=== PATIENT | female | born 1995 | race Caucasian/White ===

== ENCOUNTER → 2016-09-27 | Outpatient (REF) | payer BC ==
[2016-09-27 16:02] LABS: MEAN CORPUSCULAR HEMOGLOBIN 30.5 PG (26.0-34.0); MEAN CORPUSCULAR HGB CONC 34.2 g/dL (31.0-37.0); MEAN PLATELET VOLUME 9.9 FL (6.0-9.5); WHITE BLOOD COUNT 10.51 10^3uL (4.0-11.0)
[2016-09-28 13:52] LABS: RUBELLA AB IGG 2.42 OD Ratio (>1.09)
[2016-09-28 19:18] LABS: HEPATITIS B SURFACE ANTIGEN C Negative
== END ==
LOC: LAB 15:32
PROVIDERS: ATTEND Family Medicine
DX: Z34.81 Encounter for supervision of other normal pregnancy, first trimester (principal)
CPT/HCPCS: 85027; 86592; 86706; 86762; 86850; 86900; 86901; 87340